=== PATIENT | male | born 1960 ===

== ENCOUNTER 2016-04-26 03:40 | Emergency (ER) | payer SELFPAY ==
[2016-04-26] MEDS ORDERED: ASPIRIN CHEWTAB 81 MG TABLET ONE (04:18)
[2016-04-26 04:42] LABS: ABSOLUTE NEUTROPHIL COUNT 2.5 K/mm3 (1.8-7.7); BASO % 0.2 % (0.2-1.0); EOS # 0.1 (0.0-0.5); EOS % 3.2 % (0.9-2.9); HEMATOCRIT 40.4 % (32.0-52.0); HEMOGLOBIN 14.1 gm/l (14.0-18.0); IMM NEUT% 0.2 % (0-1); LYMPH # 0.9 (1.0-4.8); MEAN CELL VOLUME 93.1 fl (80.0-94.0); MEAN CORPUSCULAR HEMOGLOBIN 32.5 pg (27.0-31.0); MEAN CORPUSCULAR HGB CONC 34.9 g/dl (33.0-37.0); MEAN PLATELET VOLUME 10.6 fl (7.4-10.4); MONO # 0.5 (0.0-0.8); NEUT % 61.4 % (43-75); PLATELET COUNT 107 K/mm3 (130-400); RED CELL DISTRIBUTION WIDTH 13.7 % (11.5-14.5)
[2016-04-26 05:03] LABS: TROPONIN I 0.03 ng/ml (0.0-0.06)
[2016-04-26 05:07] LABS: CKMB ISOENZYME 3.6 ng/ml (0.6-6.3)
[2016-04-26 05:12] LABS: ALB/GLOB RATIO 1.3 (>1.0); ALBUMIN 3.6 gm/dL (3.5-5.7); CALCIUM 8.8 mg/dL (8.6-10.3)
== END 2016-04-26 06:44 | disposition home or self-care (01) ==
LOC: ED 03:40
DX: R07.9 Chest pain, unspecified (principal); F17.210 Nicotine dependence, cigarettes, uncomplicated; Z95.1 Presence of aortocoronary bypass graft
CPT/HCPCS: 85025; 82550; 82553; 80053; 84484; 99284 ×2; 93005; A9270